=== PATIENT | male | born 1960 | race Caucasian/White ===

== ENCOUNTER → 2017-01-18 | Outpatient (CLI) | payer MEDICARE ==
[~2017-01-18] MED LIST: APAP/OXYCODONE1 TA1 PO; SEROQUEL 25MG T25 MG PO
[2017-01-18 16:36] LABS: BUN 12 mg/dL (7-18)
[2017-01-18 16:53] LABS: GFR (ESTIMATED) 76 ML/MIN (>60)
== END ==
LOC: LAB 14:38
PROVIDERS: Physician Assistant
DX: R76.8 Other specified abnormal immunological findings in serum (principal)

== ENCOUNTER → 2017-08-15 | Outpatient (CLI) | payer MEDICARE ==
--- NOTE | 2017-08-15 08:21 | CARDIOVASCULAR REPORT ---
"Cerebrovascular Exam Indications: 785.9 Bruit. IMPRESSIONS 1. The bilateral vertebral arteries are patent with normal antegrade flow. 2. Study suggests less than 20% stenosis involving the right internal carotid artery and the left internal carotid artery. History: Coronary artery disease. Risk factors: Current tobacco use. Hypertension. Hyperlipidemia. Carotid duplex study. Complete study and Doppler flow study including spectral analysis, color and hanna scale imaging. Height: Height: 175.3cm. Height: 69in. Weight: Weight: 78.9kg. Weight: 173.6lb. Body mass index: BMI: 25.7kg/m^2. Body surface area: BSA: 1.97m^2. Location: Vascular laboratory. Patient status: Outpatient. Tables: Arterial flow: + +--------+--------+ |Location |V sys |V ed | + +--------+--------+ |Right CCA - proximal|65.2cm/s|18.9cm/s| + +--------+--------+ |Right CCA - distal |66.8cm/s|22cm/s | + +--------+--------+ |Right ECA |93.5cm/s|--------| + +--------+--------+ |Right ICA - proximal|73.1cm/s|26.7cm/s| + +--------+--------+ |Right ICA - mid |68.4cm/s|26.7cm/s| + +--------+--------+ |Right ICA - distal |76.2cm/s|29.9cm/s| + +--------+--------+ |Right vertebral |57.4cm/s|--------| + +--------+--------+ |Left CCA - proximal |80.1cm/s|19.6cm/s| + +--------+--------+ |Left CCA - distal |80.1cm/s|21.2cm/s| + +--------+--------+ |Left ECA |93.5cm/s|--------| + +--------+--------+ |Left ICA - proximal |53.4cm/s|22cm/s | + +--------+--------+ |Left ICA - mid |65.2cm/s|32.2cm/s| + +--------+--------+ |Left ICA - distal |81.7cm/s|38.5cm/s| + +--------+--------+ |Left vertebral |43.2cm/s|--------| + +--------+--------+ Velocity ratios: + + + + + + | |Right, V sys|Right, V ed|Left, V sys|Left, V ed| + + + + + + |Max ICA/dist CCA|1.14 |1.36 |1.02 |1.82 | + + + + + + (Report amended ) Electronically signed by: Osmin Addison [id number]"
== END ==
LOC: RT 07:53
DX: R09.89 Other specified symptoms and signs involving the circulatory and respiratory systems (principal); I25.10 Atherosclerotic heart disease of native coronary artery without angina pectoris; I10 Essential (primary) hypertension; E78.5 Hyperlipidemia, unspecified; Z72.0 Tobacco use